=== PATIENT | female | born 1995 | race Hispanic/Latino ===

== ENCOUNTER 2021-01-01 17:04 | Inpatient (IN) | payer SELFPAY ==
[~2021-01-01] VITALS: Ht 144.8 cm; Wt 73.0 kg
[2021-01-01 17:40] LABS: BASOPHILS % (AUTO) 0.4 % (0.0-5.0); EOSINOPHILS % (AUTO) 1.3 % (0.0-8.0); HEMATOCRIT 43.3 % (36-48); LYMPHOCYTES % (AUTO) 32.5 % (21.0-51.0); MEAN CORPUSCULAR HEMOGLOBIN 30.4 pg (27.0-33.0); MEAN CORPUSCULAR HGB CONC 34.6 g/dL (32.0-36.0); MEAN CORPUSCULAR VOLUME 87.8 fL (79-99); MONOCYTES % (AUTO) 6.4 % (3.0-13.0); NEUTROPHILS % (AUTO) 59.1 % (40.0-77.0); PLATELET COUNT (AUTO) 344 K/uL (130-400); RED BLOOD CELL COUNT(AUTO) 4.93 MIL/uL (4.00-5.50); WHITE BLOOD COUNT (AUTO) 11.2 K/uL (4.8-10.8)
[2021-01-01 17:50] LABS: CREATININE 0.6 mg/dL (0.5-1.5); POTASSIUM 4.1 mmol/L (3.5-5.1)
[2021-01-01 17:55] LABS: ALBUMIN 3.5 g/dL (3.5-5.0); BILIRUBIN,TOTAL 0.5 mg/dL (0.2-1.0); TOTAL PROTEIN, SERUM 7.5 g/dL (6.0-8.3)
[2021-01-01] MEDS ORDERED: 0.9%NACL 1000ML 1,000 ML IV ONE (21:30)
[2021-01-01 21:42] VITALS: BP 116/77
[2021-01-01 22:46] LABS: APPEARANCE,URINE Clear (CLEAR); BILIRUBIN,URINE Negative (NEGATIVE); COLOR,URINE Yellow (YELLOW); GLUCOSE, URINE (UA) >=1000 mg/dL (NEGATIVE); KETONES,URINE >=160 mg/dL (NEGATIVE); LEUKOCYTE ESTERASE ,URINE Negative (NEGATIVE); NITRATE,URINE Negative (NEGATIVE); OCCULT BLOOD,URINE Negative (NEGATIVE); PROTEIN,URINE Trace mg/dL (NEGATIVE)
[2021-01-01 22:54] LABS: ABG OXYGEN SATURATION 59.7 % (95.0-99.0); HCO3,VENOUS BLOOD GAS 11.9 (21.0-28.0); PCO2,VENOUS BLOOD GAS 32 (32-45); PH,VENOUS BLOOD GAS 7.189 (7.350-7.450)
[2021-01-01 23:02] LABS: BACTERIA,URINE Few /HPF (None Seen); RBC,URINE None Seen /HPF (0-1); SQUAMOUS EPITHELIAL CELL,UR Few /HPF (0-2); WBC,URINE 0-1 /HPF (0-1); YEAST,URINE BUDDING None Seen /HPF (None Seen)
[2021-01-01] MEDS ORDERED: INSULIN REGULAR, HUMAN 3ML 100 UNIT in 0.9%NACL 100ML 99 ML IV PRN ×2 (23:30)
[2021-01-01] MEDS ORDERED: POTASSIUM CHLORIDE 10MEQ/100ML 100 ML IV PRN (23:30)
[2021-01-01] MEDS ORDERED: POTASSIUM CHLORIDE 10% ELIXIR 20 MEQ/15 ML UDCUP PO PRN (23:30)
[2021-01-01] MEDS ORDERED: DEXTROSE 5 %-0.45 % NACL 1,000 ML IV PRN (23:30)
[2021-01-01] MEDS ORDERED: 0.9%NACL 1000ML 1,000 ML IV SCH (23:30)
[2021-01-01] MEDS ORDERED: POTASSIUM CHLORIDE 20MEQ/100ML 100 ML IV PRN (23:30)
[2021-01-01] MEDS ORDERED: LIDOCAINE HCL-MPF 1% 2ML VIAL IV PRN (23:30)
[2021-01-01 23:57] VITALS: BP 111/66
[2021-01-02] VITALS (16 sets, daily range): BP systolic 91–135; BP diastolic 49–92
[2021-01-02 00:06] LABS: CHOLESTEROL 313 mg/dL (<200); HDL CHOLESTEROL 28 mg/dL (35-85); LDL DIRECT 79 mg/dL (0-99); TRIGLYCERIDES 1904 mg/dL (30-200)
[2021-01-02 00:35] LABS: HEMOGLOBIN A1C 11.8 % (4.0-6.0)
[2021-01-02] MEDS: 0.9%NACL 1000ML 1,000 ML IV SCH ×5 (00:46→23:40)
[2021-01-02 06:42] LABS: BASOPHILS % (AUTO) 0.3 % (0.0-5.0); EOSINOPHILS % (AUTO) 1.7 % (0.0-8.0); HEMATOCRIT 38.6 % (36-48); LYMPHOCYTES % (AUTO) 33.7 % (21.0-51.0); MEAN CORPUSCULAR HEMOGLOBIN 30.4 pg (27.0-33.0); MEAN CORPUSCULAR HGB CONC 34.2 g/dL (32.0-36.0); MEAN CORPUSCULAR VOLUME 88.9 fL (79-99); MONOCYTES % (AUTO) 8.1 % (3.0-13.0); PLATELET COUNT (AUTO) 285 K/uL (130-400); RED BLOOD CELL COUNT(AUTO) 4.34 MIL/uL (4.00-5.50); RED CELL DISTRIBUTION WIDTH 12.4 % (11.0-15.5); WHITE BLOOD COUNT (AUTO) 10.1 K/uL (4.8-10.8)
[2021-01-02 06:59] LABS: CREATININE 0.3 mg/dL (0.5-1.5); MAGNESIUM 1.6 mg/dL (1.80-2.40); PHOSPHORUS 2.4 mg/dL (2.5-4.9)
[2021-01-02] MEDS: FAMOTIDINE 20MG VIAL IV SCH ×2 (07:51→21:58)
[2021-01-02] MEDS: ENOXAPARIN SODIUM 40 MG/0.4 ML SYRINGE SQ SCH ×2 (07:51→09:00)
[2021-01-02] MEDS: MAGNESIUM 2GM PREMIX 50ML 50 ML IV PRN (10:22)
[2021-01-02 12:42] LABS: ABG BASE EXCESS -8.6 mmol/L (-2.0-3.0); ABG HCO3 15.9 mmol/L (21.0-28.0); ABG OXYGEN SATURATION 97.7 % (95.0-99.0); ABG PCO2 31 mmHg (32-45)
[2021-01-02 12:51] LABS: CREATININE 0.4 mg/dL (0.5-1.5); POTASSIUM 3.5 mmol/L (3.5-5.1)
[2021-01-02 12:55] LABS: ALBUMIN 2.7 g/dL (3.5-5.0); BILIRUBIN,TOTAL 0.3 mg/dL (0.2-1.0); MAGNESIUM 2.2 mg/dL (1.80-2.40); PHOSPHORUS 2.5 mg/dL (2.5-4.9)
[2021-01-02 13:17] LABS: BASOPHILS % (AUTO) 0.4 % (0.0-5.0); EOSINOPHILS % (AUTO) 1.4 % (0.0-8.0); HEMATOCRIT 38.8 % (36-48); LYMPHOCYTES % (AUTO) 37.4 % (21.0-51.0); MEAN CORPUSCULAR HEMOGLOBIN 30.4 pg (27.0-33.0); MEAN CORPUSCULAR HGB CONC 35.3 g/dL (32.0-36.0); NEUTROPHILS % (AUTO) 53.6 % (40.0-77.0); PLATELET COUNT (AUTO) 316 K/uL (130-400); RED BLOOD CELL COUNT(AUTO) 4.51 MIL/uL (4.00-5.50); RED CELL DISTRIBUTION WIDTH 12.2 % (11.0-15.5); WHITE BLOOD COUNT (AUTO) 8.4 K/uL (4.8-10.8)
[2021-01-02] MEDS ORDERED: KCL 20 MEQ ERTAB PO ONE (14:30)
[2021-01-02 16:07] LABS: CREATININE 0.5 mg/dL (0.5-1.5); POTASSIUM 3.7 mmol/L (3.5-5.1)
[2021-01-02] MEDS ORDERED: ACETAMINOPHEN 325 MG TAB ONE (20:12)
[2021-01-02] MEDS ORDERED: ACETAMINOPHEN 325 MG TAB PO PRN (20:30)
[2021-01-02 22:05] LABS: CREATININE 0.6 mg/dL (0.5-1.5); POTASSIUM 3.4 mmol/L (3.5-5.1)
[2021-01-02] MEDS: KCL 20 MEQ ERTAB PO PRN (22:34)
[2021-01-03] VITALS (26 sets, daily range): BP systolic 90–157; BP diastolic 47–79
[2021-01-03] MEDS: KCL 20 MEQ ERTAB PO PRN ×3 (00:01→09:13)
[2021-01-03 03:59] LABS: BASOPHILS % (AUTO) 0.3 % (0.0-5.0); EOSINOPHILS % (AUTO) 1.7 % (0.0-8.0); HEMATOCRIT 35.9 % (36-48); LYMPHOCYTES % (AUTO) 30.7 % (21.0-51.0); MEAN CORPUSCULAR HEMOGLOBIN 29.9 pg (27.0-33.0); MEAN CORPUSCULAR HGB CONC 34.8 g/dL (32.0-36.0); MEAN CORPUSCULAR VOLUME 85.9 fL (79-99); MONOCYTES % (AUTO) 10.1 % (3.0-13.0); NEUTROPHILS % (AUTO) 56.9 % (40.0-77.0); PLATELET COUNT (AUTO) 286 K/uL (130-400); RED BLOOD CELL COUNT(AUTO) 4.18 MIL/uL (4.00-5.50); RED CELL DISTRIBUTION WIDTH 12.2 % (11.0-15.5); WHITE BLOOD COUNT (AUTO) 9.3 K/uL (4.8-10.8)
[2021-01-03 04:17] LABS: ALBUMIN 2.6 g/dL (3.5-5.0); BILIRUBIN,TOTAL 0.4 mg/dL (0.2-1.0); CREATININE 0.5 mg/dL (0.5-1.5); MAGNESIUM 1.8 mg/dL (1.80-2.40); PHOSPHORUS 2.4 mg/dL (2.5-4.9); POTASSIUM 3.4 mmol/L (3.5-5.1); TOTAL PROTEIN, SERUM 5.6 g/dL (6.0-8.3)
[2021-01-03] MEDS: MAGNESIUM 2GM PREMIX 50ML 50 ML IV PRN (05:02)
[2021-01-03] MEDS: 0.9%NACL 1000ML 1,000 ML IV SCH ×4 (05:16→19:08)
[2021-01-03] MEDS ORDERED: INSULIN GLARGINE 100 UNITS/ML 10 ML VIAL SQ SCH (06:00)
[2021-01-03 07:50] LABS: ABG BASE EXCESS -4.1 mmol/L (-2.0-3.0); ABG OXYGEN SATURATION 97.3 % (95.0-99.0); ABG PCO2 34 mmHg (32-45)
[2021-01-03] MEDS: FAMOTIDINE 20MG VIAL IV SCH ×2 (09:13→20:13)
[2021-01-03] MEDS: ENOXAPARIN SODIUM 40 MG/0.4 ML SYRINGE SQ SCH (09:14)
[2021-01-03] MEDS: INSULIN HUMULIN R 100 UNIT/ML 3ML SQ SCH ×7 (09:15→20:40)
[2021-01-03 15:17] LABS: CHOLESTEROL 194 mg/dL (<200); HDL CHOLESTEROL 40 mg/dL (35-85); LDL DIRECT 97 mg/dL (0-99); TRIGLYCERIDES 174 mg/dL (30-200)
[2021-01-03] MEDS: FISH OIL 1000 MG/CAP PO SCH ×2 (15:36→20:13)
[2021-01-03] MEDS ORDERED: INSULIN HUMULIN R 100 UNIT/ML 3ML SQ SCH (17:30)
[2021-01-03] MEDS: ATORVASTATIN 40 MG TABLET PO SCH (20:13)
[2021-01-04 02:14] VITALS: BP 103/61
[2021-01-04 03:57] LABS: HEMATOCRIT 38.2 % (36-48); MEAN CORPUSCULAR HEMOGLOBIN 30.3 pg (27.0-33.0); MEAN CORPUSCULAR HGB CONC 34.6 g/dL (32.0-36.0); MEAN CORPUSCULAR VOLUME 87.6 fL (79-99); RED BLOOD CELL COUNT(AUTO) 4.36 MIL/uL (4.00-5.50); RED CELL DISTRIBUTION WIDTH 12.5 % (11.0-15.5); WHITE BLOOD COUNT (AUTO) 8.9 K/uL (4.8-10.8)
[2021-01-04 04:13] LABS: CREATININE 0.6 mg/dL (0.5-1.5); MAGNESIUM 1.8 mg/dL (1.80-2.40); PHOSPHORUS 3.9 mg/dL (2.5-4.9); POTASSIUM 3.7 mmol/L (3.5-5.1)
[2021-01-04] MEDS: INSULIN HUMULIN R 100 UNIT/ML 3ML SQ SCH ×6 (06:56→18:25)
[2021-01-04 07:00] VITALS: BP 97/57
[2021-01-04] MEDS: ENOXAPARIN SODIUM 40 MG/0.4 ML SYRINGE SQ SCH (08:32)
[2021-01-04] MEDS: FAMOTIDINE 20MG VIAL IV SCH ×2 (08:32→23:06)
[2021-01-04] MEDS: FISH OIL 1000 MG/CAP PO SCH ×2 (08:33→23:07)
[2021-01-04 09:22] VITALS: BP 99/54
[2021-01-04 12:00] VITALS: BP 114/68
[2021-01-04] MEDS ORDERED: INSULIN GLARGINE 100 UNITS/ML 10 ML VIAL SQ SCH ×2 (12:00→21:00)
[2021-01-04 16:00] VITALS: BP 107/67
[2021-01-04 19:45] VITALS: BP 110/62
[2021-01-04] MEDS: ATORVASTATIN 40 MG TABLET PO SCH (23:07)
[2021-01-04] MEDS ORDERED: FAMOTIDINE 20MG TAB ONE (23:14)
[2021-01-04] MEDS: FAMOTIDINE 20MG TAB PO SCH (23:15)
[2021-01-05 00:02] VITALS: BP 109/64
[2021-01-05] MEDS ORDERED: FURO40TA5 PO (02:42)
[2021-01-05] MEDS ORDERED: CHOL2000 PO (02:42)
[2021-01-05] MEDS ORDERED: PROP20TA7 PO (02:42)
[2021-01-05] MEDS ORDERED: SPIR100T5 PO (02:42)
[2021-01-05] MEDS ORDERED: GLIP10TA9 PO (02:42)
[2021-01-05] MEDS ORDERED: FISH1CAP63 PO ×2 (02:42→08:39)
[2021-01-05] MEDS ORDERED: INSLAN SQ (02:42)
[2021-01-05] MEDS ORDERED: PHEN57OI3 RC (02:42)
[2021-01-05] MEDS ORDERED: PANT40GR PO (02:42)
[2021-01-05] MEDS ORDERED: FERR-82 PO (02:42)
[2021-01-05 03:40] VITALS: BP 96/46
[2021-01-05] MEDS: INSULIN HUMULIN R 100 UNIT/ML 3ML SQ SCH ×3 (07:46→07:47)
[2021-01-05 08:00] VITALS: BP 103/64
[2021-01-05] MEDS ORDERED: ATOR10 PO (08:39)
[2021-01-05 08:59] LABS: CREATININE 0.5 mg/dL (0.5-1.5); POTASSIUM 3.8 mmol/L (3.5-5.1)
[2021-01-05] MEDS: FAMOTIDINE 20MG TAB PO SCH (10:04)
[2021-01-05] MEDS: FISH OIL 1000 MG/CAP PO SCH (10:04)
[2021-01-05] MEDS: ENOXAPARIN SODIUM 40 MG/0.4 ML SYRINGE SQ SCH (10:05)
[2021-01-05 11:00] VITALS: BP 94/60
[2021-01-05] MEDS ORDERED: INSULIN GLARGINE 100 UNITS/ML 10 ML VIAL SQ SCH (13:00)
== END 2021-01-05 13:00 | disposition home or self-care (01) | DRG 638 ==
LOC: EDH 17:04 → EDHIP 17:05 → 2CH 01-02 20:04 → 3DH 01-04 08:55
PROVIDERS: ADMIT Internal Medicine; ATTEND Internal Medicine
DX: E11.10 Type 2 diabetes mellitus with ketoacidosis without coma (principal); E87.1 Hypo-osmolality and hyponatremia; F32.9 Major depressive disorder, single episode, unspecified; F41.9 Anxiety disorder, unspecified; E28.2 Polycystic ovarian syndrome; E87.6 Hypokalemia; E88.81 Metabolic syndrome and other insulin resistance; E66.01 Morbid (severe) obesity due to excess calories; D72.829 Elevated white blood cell count, unspecified; Z68.36 Body mass index [BMI] 36.0-36.9, adult; E78.1 Pure hyperglyceridemia; F17.210 Nicotine dependence, cigarettes, uncomplicated; Z79.4 Long term (current) use of insulin; Z83.3 Family history of diabetes mellitus
CPT/HCPCS: 36415; 36600; 71045; 80048; 80053; 80061; 81001; 81025; 82150; 82435; 82803; 82947; 82948; 83036; 83605; 83690; 83735; 84100; 84132; 84145; 84295; 84443; 85018; 85025; 85027; G0378; J1650; J1815; J3475; J3490; J7030; J7042

== ENCOUNTER 2021-10-18 10:49 | Inpatient (IN) | payer OTHER ==
[~2021-10-18] VITALS: Ht 149.9 cm; Wt 72.3 kg
[~2021-10-18 10:49] MED LIST: ATOR10 PO; CHOL2000 PO; FERR-82 PO; FISH1CAP63 PO; PANT40GR PO; PHEN57OI3 RC
[2021-10-18 11:46] LABS: BASOPHILS % (AUTO) 0.5 % (0.0-5.0); HEMATOCRIT 45.3 % (36-48); LYMPHOCYTES % (AUTO) 24.2 % (21.0-51.0); MEAN CORPUSCULAR HGB CONC 33.6 g/dL (32.0-36.0); MEAN CORPUSCULAR VOLUME 89.5 fL (79-99); NEUTROPHILS % (AUTO) 67.9 % (40.0-77.0); PLATELET COUNT (AUTO) 289 K/uL (130-400); RED BLOOD CELL COUNT(AUTO) 5.06 MIL/uL (4.00-5.50); RED CELL DISTRIBUTION WIDTH 13.1 % (11.0-15.5); WHITE BLOOD COUNT (AUTO) 10.9 K/uL (4.8-10.8)
[2021-10-18] MEDS ORDERED: ONDANSETRON 4MG INJ IVP ONE (12:00)
[2021-10-18] MEDS ORDERED: MORPHINE 4 MG SYG IVP ONE (12:00)
[2021-10-18] MEDS ORDERED: ASPIRIN 325MG TAB PO ONE (12:00)
[2021-10-18 12:10] LABS: CREATININE 0.5 mg/dL (0.5-1.5)
[2021-10-18 12:16] LABS: ALBUMIN 3.5 g/dL (3.5-5.0); BILIRUBIN,TOTAL 0.4 mg/dL (0.2-1.0); TOTAL PROTEIN, SERUM 7.1 g/dL (6.0-8.3)
[2021-10-18 12:19] LABS: AMPHET/METH SCREEN,URINE NEGATIVE (NEGATIVE); BARBITURATE SCREEN, URINE NEGATIVE (NEGATIVE); BENZODIAZEPINES SCREEN,URINE NEGATIVE (NEGATIVE); CANNABINOID SCREEN,URINE POSITIVE (NEGATIVE); COCAINE SCREEN,URINE NEGATIVE (NEGATIVE); OPIATE SCREEN,URINE NEGATIVE (NEGATIVE); PHENCYCLIDINE SCREEN,URINE NEGATIVE (NEGATIVE)
[2021-10-18] MEDS ORDERED: INSULIN HUMULIN R 100 UNIT/ML 3ML IV SCH ×2 (13:00→14:30)
[2021-10-18] MEDS: 0.9%NACL 1000ML 1,000 ML IV SCH ×4 (13:16→20:39)
[2021-10-18 13:28] LABS: APPEARANCE,URINE Clear (CLEAR); BILIRUBIN,URINE Negative (NEGATIVE); COLOR,URINE Yellow (YELLOW); GLUCOSE, URINE (UA) >=1000 mg/dL (NEGATIVE); KETONES,URINE >=160 mg/dL (NEGATIVE); LEUKOCYTE ESTERASE ,URINE Negative (NEGATIVE); NITRATE,URINE Negative (NEGATIVE); OCCULT BLOOD,URINE Negative (NEGATIVE); PROTEIN,URINE Negative (NEGATIVE); UROBILINOGEN,URINE 0.2 mg/dL (0.2-1.0)
[2021-10-18 13:31] LABS: ABG BASE EXCESS -7.9 mmol/L (-2.0-3.0); ABG HCO3 16.3 mmol/L (21.0-28.0); ABG OXYGEN SATURATION 96.8 % (95.0-99.0); ABG PCO2 30 mmHg (32-45)
[2021-10-18 13:39] LABS: BACTERIA,URINE Few /HPF (None Seen); RBC,URINE 0-1 /HPF (0-1); WBC,URINE 0-1 /HPF (0-1)
[2021-10-18] MEDS ORDERED: POTASSIUM CHLORIDE 10MEQ/100ML 100 ML IV PRN (14:30)
[2021-10-18] MEDS ORDERED: ONDANSETRON 4MG INJ IV PRN (14:30)
[2021-10-18] MEDS ORDERED: LACTULOSE 20 GM/30 ML UDCUP PO PRN (14:30)
[2021-10-18] MEDS ORDERED: ACETAMINOPHEN 325 MG TAB PO PRN ×2 (14:30)
[2021-10-18] MEDS ORDERED: 0.9%NACL 1000ML 1,000 ML IV SCH ×4 (14:30)
[2021-10-18] MEDS ORDERED: DEXTROSE 5 %-0.45 % NACL 1,000 ML IV PRN (14:30)
[2021-10-18 14:47] LABS: CHOLESTEROL 255 mg/dL (<200); HDL CHOLESTEROL 28 mg/dL (35-85); LDL DIRECT 83 mg/dL (0-99); TRIGLYCERIDES 986 mg/dL (30-200)
[2021-10-18 14:56] LABS: HEMOGLOBIN A1C 11.7 % (4.0-6.0)
[2021-10-18] MEDS ORDERED: INSULIN REGULAR, HUMAN 3ML 100 UNIT in 0.9%NACL 100ML 99 ML IV SCH ×2 (15:00)
[2021-10-18] MEDS: DEXTROSE 5 %-0.45 % NACL 1,000 ML IV PRN ×3 (15:06→23:02)
[2021-10-18] MEDS: INSULIN LISPRO 100 UNIT/ML 3ML SQ SCH (17:26)
[2021-10-18] MEDS ORDERED: INSULIN GLARGINE 100 UNITS/ML 10 ML VIAL SQ SCH (21:00)
[2021-10-18] MEDS: FAMOTIDINE 20MG VIAL IV SCH (21:46)
[2021-10-18 21:57] LABS: BASE EXCESS,VENOUS BLOOD GAS -7.1 (-2.0-3.0); HCO3,VENOUS BLOOD GAS 18.3 (21.0-28.0); PCO2,VENOUS BLOOD GAS 36 (32-45); PH,VENOUS BLOOD GAS 7.319 (7.350-7.450)
[2021-10-18 22:17] LABS: CREATININE 0.4 mg/dL (0.5-1.5); MAGNESIUM 1.2 mg/dL (1.80-2.40); PHOSPHORUS 2.1 mg/dL (2.5-4.9); POTASSIUM 3.2 mmol/L (3.5-5.1)
[2021-10-18] MEDS: POTASSIUM CHLORIDE 10MEQ/100ML 100 ML IV PRN (23:02)
[2021-10-18] MEDS ORDERED: PROMETHAZINE HCL 25 MG/ML 1ML AMPULE IM ONE (23:30)
[2021-10-19] VITALS (32 sets, daily range): BP systolic 73–117; BP diastolic 41–73
[2021-10-19] MEDS: MAGNESIUM 2GM PREMIX 50ML 50 ML IV PRN ×2 (02:09→06:31)
[2021-10-19 04:50] LABS: HEMATOCRIT 36.1 % (36-48); MEAN CORPUSCULAR HEMOGLOBIN 28.9 pg (27.0-33.0); MEAN CORPUSCULAR HGB CONC 32.7 g/dL (32.0-36.0); MEAN CORPUSCULAR VOLUME 88.5 fL (79-99); RED BLOOD CELL COUNT(AUTO) 4.08 MIL/uL (4.00-5.50); RED CELL DISTRIBUTION WIDTH 13.1 % (11.0-15.5); WHITE BLOOD COUNT (AUTO) 9.6 K/uL (4.8-10.8)
[2021-10-19 05:06] LABS: CREATININE 0.4 mg/dL (0.5-1.5); MAGNESIUM 1.9 mg/dL (1.80-2.40); PHOSPHORUS 2.2 mg/dL (2.5-4.9)
[2021-10-19] MEDS: POTASSIUM CHLORIDE 10MEQ/100ML 100 ML IV PRN (05:15)
[2021-10-19] MEDS: DEXTROSE 5 %-0.45 % NACL 1,000 ML IV PRN (05:26)
[2021-10-19] MEDS ORDERED: KCL 20 MEQ ERTAB PO PRN (06:00)
[2021-10-19] MEDS: 0.9%NACL 1000ML 1,000 ML IV SCH (06:05)
[2021-10-19] MEDS: FAMOTIDINE 20MG VIAL IV SCH ×2 (08:16→22:46)
[2021-10-19] MEDS: ENOXAPARIN SODIUM 40 MG/0.4 ML SYRINGE SQ SCH (08:18)
[2021-10-19] MEDS: INSULIN LISPRO 100 UNIT/ML 3ML SQ SCH (08:19)
[2021-10-19 09:12] LABS: CREATININE 0.4 mg/dL (0.5-1.5); MAGNESIUM 2.1 mg/dL (1.80-2.40); PHOSPHORUS 1.9 mg/dL (2.5-4.9); POTASSIUM 3.6 mmol/L (3.5-5.1)
[2021-10-19] MEDS: NEUTRA-PHOS PACKET 1 EACH PO SCH ×3 (12:53→22:49)
[2021-10-19] MEDS: INSULIN HUMULIN R 100 UNIT/ML 3ML SQ SCH ×2 (16:43→22:53)
[2021-10-19] MEDS: INSULIN HUMULIN 70/30 100 UNIT/ML 3ML SQ SCH (16:46)
[2021-10-19] MEDS ORDERED: GABAPENTIN 300 MG CAPSULE PO SCH (21:00)
[2021-10-20 03:45] VITALS: BP 109/67
[2021-10-20] MEDS: INSULIN HUMULIN R 100 UNIT/ML 3ML SQ SCH ×3 (05:14→16:30)
[2021-10-20] MEDS ORDERED: INSULIN HUMULIN 70/30 100 UNIT/ML 3ML SQ SCH (07:30)
[2021-10-20 08:00] VITALS: BP 109/63
[2021-10-20] MEDS ORDERED: LIDOCAINE HCL-MPF 1% 2ML VIAL IV PRN (08:30)
[2021-10-20] MEDS ORDERED: POTASSIUM CHLORIDE 20MEQ/100ML 100 ML IV PRN (08:30)
[2021-10-20] MEDS ORDERED: POTASSIUM CHLORIDE 10% ELIXIR 20 MEQ/15 ML UDCUP PO PRN (08:30)
[2021-10-20] MEDS ORDERED: KCL 20 MEQ ERTAB PO PRN (08:30)
[2021-10-20] MEDS ORDERED: MAGNESIUM 2GM PREMIX 50ML 50 ML IV PRN (08:30)
[2021-10-20] MEDS: FAMOTIDINE 20MG VIAL IV SCH (08:47)
[2021-10-20] MEDS: NEUTRA-PHOS PACKET 1 EACH PO SCH ×3 (08:47→17:00)
[2021-10-20] MEDS: ENOXAPARIN SODIUM 40 MG/0.4 ML SYRINGE SQ SCH (08:48)
[2021-10-20] MEDS: FUROSEMIDE 20MG VIAL IV SCH ×2 (08:52→17:08)
[2021-10-20] MEDS: GABAPENTIN 300 MG CAPSULE PO SCH ×3 (08:53→13:36)
[2021-10-20 09:25] LABS: CREATININE 0.5 mg/dL (0.5-1.5); MAGNESIUM 1.7 mg/dL (1.80-2.40); PHOSPHORUS 3.5 mg/dL (2.5-4.9); POTASSIUM 3.5 mmol/L (3.5-5.1)
[2021-10-20 13:00] VITALS: BP 112/75
[2021-10-20] MEDS ORDERED: FENO145T26 PO (15:30)
[2021-10-20] MEDS ORDERED: ATOR40TA69 PO (15:30)
[2021-10-20] MEDS ORDERED: GABA300C PO (15:30)
[2021-10-20] MEDS ORDERED: HUM10VIA SQ ×2 (15:30)
[2021-10-20] MEDS ORDERED: [UNRECOGNIZED DRUG - CODE] MC (15:41)
[2021-10-20 16:00] VITALS: BP 125/72
[2021-10-20] MEDS: INSULIN HUMULIN 70/30 100 UNIT/ML 3ML SQ SCH (16:59)
[2021-10-20] MEDS ORDERED: FENOFIBRATE NANOCRYSTALLIZED 145 MG TAB PO SCH (17:00)
[2021-10-20] MEDS ORDERED: ATORVASTATIN 40 MG TABLET PO SCH (17:00)
== END 2021-10-20 17:45 | disposition home or self-care (01) | DRG 638 ==
LOC: EDH 10:49 → EDHIP 10:50 → 2BH 10-19 00:46 → 4DH 10-19 15:05
PROVIDERS: ADMIT Internal Medicine; ATTEND Internal Medicine
DX: E11.10 Type 2 diabetes mellitus with ketoacidosis without coma (principal); N17.9 Acute kidney failure, unspecified; E86.1 Hypovolemia; E78.5 Hyperlipidemia, unspecified; F32.A Depression, unspecified; F41.9 Anxiety disorder, unspecified; F17.210 Nicotine dependence, cigarettes, uncomplicated; E78.00 Pure hypercholesterolemia, unspecified; Z79.4 Long term (current) use of insulin; Z82.49 Family history of ischemic heart disease and other diseases of the circulatory system; G62.9 Polyneuropathy, unspecified
CPT/HCPCS: 36415; 36600; 71045; 80048; 80053; 80061; 80305; 81001; 81025; 82010; 82435; 82607; 82746; 82803; 82947; 82948; 83036; 83605; 83735; 83930; 84100; 84132; 84295; 84443; 84484; 85025; 85027; 85378; 93005; G0378; J1650; J1815; J1940; J2270; J2405; J3475; J3490; J7030; J7042

== ENCOUNTER 2022-09-16 07:48 | Emergency (ER) | payer BC ==
[~2022-09-16] VITALS: Ht 149.9 cm; Wt 61.7 kg
[~2022-09-16 07:48] MED LIST changes: -ATOR10 PO; +ATOR40TA69 PO; +FENO145T26 PO; +GABA300C PO; +HUM10VIA SQ; -PHEN57OI3 RC; +[UNRECOGNIZED DRUG - CODE] MC
[2022-09-16 08:50] LABS: BASOPHILS % (AUTO) 0.3 % (0.0-5.0); EOSINOPHILS % (AUTO) 1.1 % (0.0-8.0); HEMATOCRIT 45.7 % (36-48); LYMPHOCYTES % (AUTO) 21.7 % (21.0-51.0); MEAN CORPUSCULAR HGB CONC 33.9 g/dL (32.0-36.0); MEAN CORPUSCULAR VOLUME 91.4 fL (79-99); MONOCYTES % (AUTO) 5.4 % (3.0-13.0); NEUTROPHILS % (AUTO) 71.2 % (40.0-77.0); PLATELET COUNT (AUTO) 348 K/uL (130-400); RED CELL DISTRIBUTION WIDTH 11.7 % (11.0-15.5); WHITE BLOOD COUNT (AUTO) 13.3 K/uL (4.8-10.8)
[2022-09-16 09:04] LABS: CREATININE 0.6 mg/dL (0.5-1.5); CRP QUANTITATIVE 26.8 mg/L (0.00-9.0); POTASSIUM 3.7 mmol/L (3.5-5.1); TOTAL PROTEIN, SERUM 8.3 g/dL (6.0-8.3)
[2022-09-16 09:36] LABS: INFLUENZA TYPE A NEGATIVE FOR TYPE A (NEG); INFLUENZA TYPE B NEGATIVE FOR TYPE B (NEG)
[2022-09-16] MEDS ORDERED: IPRATROPIUM/ALBUTEROL SULFATE 3 ML SOLUTION IH ONE (10:30)
[2022-09-16] MEDS ORDERED: INSULIN HUMULIN R 100 UNIT/ML 3ML IV ONE (10:30)
[2022-09-16] MEDS ORDERED: BENZONATATE 100 MG CAPSULE PO ONE (10:30)
[2022-09-16] MEDS ORDERED: 0.9%NACL 1000ML 1,000 ML IV ONE (10:30)
[2022-09-16] MEDS ORDERED: CEFTRIAXONE 1G VIAL IVP ONE (10:30)
[2022-09-16] MEDS ORDERED: DEXAMETHASONE SOD PHOSPHATE 4 MG/ML 1ML VIAL IVP ONE (10:30)
[2022-09-16 11:38] LABS: APPEARANCE,URINE CLEAR (CLEAR); BILIRUBIN,URINE NEGATIVE (NEGATIVE); COLOR,URINE COLORLESS (YELLOW); GLUCOSE, URINE (UA) >=1000 mg/dL (NEGATIVE); KETONES,URINE 60 mg/dL (NEGATIVE); LEUKOCYTE ESTERASE ,URINE NEGATIVE Leu/uL (NEGATIVE); NITRATE,URINE NEGATIVE (NEGATIVE); OCCULT BLOOD,URINE NEGATIVE (NEGATIVE); PH,URINE 6.5 (5.0-8.0); PROTEIN,URINE NEGATIVE (NEGATIVE); UROBILINOGEN,URINE 0.2 mg/dL (0.2-1.0)
[2022-09-16 11:40] VITALS: BP 99/54
[2022-09-16 11:40] LABS: SQUAMOUS EPITHELIAL CELL,UR RARE /HPF (0-2); YEAST,URINE BUDDING RARE /HPF (None Seen)
[2022-09-16] MEDS ORDERED: BENZ-39 PO (12:15)
[2022-09-16] MEDS ORDERED: AMOX500C2 PO (12:15)
[2022-09-16] MEDS ORDERED: METF-444 PO (12:15)
[2022-09-16] MEDS ORDERED: FLUT16H NASAL (12:15)
[2022-09-16] MEDS ORDERED: ALBUHFA IH (12:15)
== END 2022-09-16 12:26 | disposition home or self-care (01) ==
LOC: EDH 07:48
DX: J20.8 Acute bronchitis due to other specified organisms (principal); J32.9 Chronic sinusitis, unspecified; E11.65 Type 2 diabetes mellitus with hyperglycemia; E78.00 Pure hypercholesterolemia, unspecified; Z79.899 Other long term (current) drug therapy; Z20.822 Contact with and (suspected) exposure to COVID-19
CPT/HCPCS: 99284; 96374; 71046; 96361; 96375; 87635; 80053; 85025; 87804 ×2; 82948; 86140; 81001; 81025; 36415; 94640; J1815; J1100; C9803; J7030; J0696

== ENCOUNTER 2022-12-30 06:59 | Emergency (ER) | payer BC ==
[~2022-12-30] VITALS: Ht 149.9 cm; Wt 56.7 kg
[~2022-12-30 06:59] MED LIST changes: +ALBUHFA IH; +AMOX500C2 PO; +BENZ-39 PO; +FLUT16H NASAL; +METF-444 PO
[2022-12-30 07:26] LABS: BASOPHILS # (AUTO) 0.04 K/uL (0.00-0.20); BASOPHILS % (AUTO) 0.5 % (0.0-5.0); EOSINOPHILS # (AUTO) 0.17 K/uL (0.00-0.70); EOSINOPHILS % (AUTO) 2.1 % (0.0-8.0); HEMATOCRIT 43.9 % (36-48); IMMATURE GRANULOCYTE ABSOLUTE 0.02 K/uL (0-1); LYMPHOCYTES # (AUTO) 2.3 K/uL (1.0-4.8); LYMPHOCYTES % (AUTO) 27.6 % (21.0-51.0); MEAN CORPUSCULAR HEMOGLOBIN 30.7 pg (27.0-33.0); MEAN CORPUSCULAR HGB CONC 33.3 g/dL (32.0-36.0); MEAN CORPUSCULAR VOLUME 92.2 fL (79-99); MONOCYTES # (AUTO) 0.7 K/uL (0.1-1.0); MONOCYTES % (AUTO) 8.1 % (3.0-13.0); NEUTROPHILS % (AUTO) 61.5 % (40.0-77.0); PLATELET COUNT (AUTO) 297 K/uL (130-400); RED BLOOD CELL COUNT(AUTO) 4.76 MIL/uL (4.00-5.50); RED CELL DISTRIBUTION WIDTH 11.6 % (11.0-15.5); WHITE BLOOD COUNT (AUTO) 8.2 K/uL (4.8-10.8)
[2022-12-30 07:45] LABS: APPEARANCE,URINE CLEAR (CLEAR); BILIRUBIN,URINE NEGATIVE (NEGATIVE); COLOR,URINE COLORLESS (YELLOW); GLUCOSE, URINE (UA) >=1000 mg/dL (NEGATIVE); HCG,QUALITATIVE URINE NEGATIVE (NEGATIVE); KETONES,URINE >=80 mg/dL (NEGATIVE); LEUKOCYTE ESTERASE ,URINE NEGATIVE Leu/uL (NEGATIVE); NITRATE,URINE NEGATIVE (NEGATIVE); OCCULT BLOOD,URINE MODERATE (NEGATIVE); PROTEIN,URINE NEGATIVE (NEGATIVE); UROBILINOGEN,URINE 0.2 mg/dL (0.2-1.0)
[2022-12-30 07:46] LABS: ADD UA MICROSCOPIC YES
[2022-12-30 07:47] LABS: RBC,URINE 0-1 /HPF (0-1); SQUAMOUS EPITHELIAL CELL,UR RARE /HPF (0-2)
[2022-12-30 08:00] LABS: ALBUMIN 3.7 g/dL (3.5-5.0); CREATININE 0.6 mg/dL (0.5-1.5); POTASSIUM 4.3 mmol/L (3.5-5.1)
[2022-12-30 08:04] LABS: BILIRUBIN,TOTAL 0.3 mg/dL (0.2-1.0); MAGNESIUM 1.7 mg/dL (1.80-2.40); TOTAL PROTEIN, SERUM 7.4 g/dL (6.0-8.3)
[2022-12-30] MEDS ORDERED: 0.9%NACL 1000ML 2,000 ML IV ONE (08:21)
[2022-12-30] MEDS ORDERED: INSULIN HUMULIN R 100 UNIT/ML 3ML ONE (08:21)
[2022-12-30] MEDS ORDERED: 0.9%NACL 1000ML 1,000 ML IV ONE (08:30)
[2022-12-30] MEDS ORDERED: ASPIRIN 325MG TAB PO ONE (08:30)
[2022-12-30] MEDS ORDERED: INSULIN HUMULIN R 100 UNIT/ML 3ML SQ ONE (08:30)
[2022-12-30] MEDS ORDERED: LACTATED RINGERS 1000ML 1,000 ML IV ONE (08:30)
[2022-12-30] MEDS ORDERED: ONDANSETRON 4MG INJ IVP ONE (08:30)
[2022-12-30] MEDS ORDERED: FAMOTIDINE 20MG VIAL IV ONE (08:30)
[2022-12-30] MEDS ORDERED: GLIP10TA9 PO (11:58)
[2022-12-30 12:14] VITALS: BP 109/67; PULSE 78; RESP 16; O2SAT 98
== END 2022-12-30 12:17 | disposition home or self-care (01) ==
LOC: EDH 06:59
DX: E11.65 Type 2 diabetes mellitus with hyperglycemia (principal); E78.00 Pure hypercholesterolemia, unspecified; Z79.899 Other long term (current) drug therapy; Z79.4 Long term (current) use of insulin
CPT/HCPCS: 99284; 96374; 71045; 96375; 96361; 83735; 84484 ×2; 80053; 85025; 82948 ×2; 82010; 81001; 81025; 36415; 93005 ×2; J1815; J3490; J7030; J2405

== ENCOUNTER 2023-04-21 11:36 | Emergency (ER) | payer BC ==
[~2023-04-21] VITALS: Ht 149.9 cm; Wt 54.4 kg
[~2023-04-21 11:36] MED LIST changes: +GLIP10TA9 PO
[2023-04-21 12:17] LABS: BASOPHILS # (AUTO) 0.04 K/uL (0.00-0.20); BASOPHILS % (AUTO) 0.4 % (0.0-5.0); EOSINOPHILS # (AUTO) 0.11 K/uL (0.00-0.70); EOSINOPHILS % (AUTO) 1.2 % (0.0-8.0); IMMATURE GRANULOCYTE ABSOLUTE 0.02 K/uL (0-1); LYMPHOCYTES # (AUTO) 2.5 K/uL (1.0-4.8); LYMPHOCYTES % (AUTO) 28.1 % (21.0-51.0); MEAN CORPUSCULAR HGB CONC 34.3 g/dL (32.0-36.0); MEAN CORPUSCULAR VOLUME 93.2 fL (79-99); MONOCYTES # (AUTO) 0.7 K/uL (0.1-1.0); MONOCYTES % (AUTO) 7.4 % (3.0-13.0); NEUTROPHILS # (AUTO) 5.7 K/uL (1.8-7.7); NEUTROPHILS % (AUTO) 62.7 % (40.0-77.0); PLATELET COUNT (AUTO) 307 K/uL (130-400); RED BLOOD CELL COUNT(AUTO) 4.72 MIL/uL (4.00-5.50); RED CELL DISTRIBUTION WIDTH 11.6 % (11.0-15.5)
[2023-04-21 12:24] LABS: HCG,QUALITATIVE URINE NEGATIVE (NEGATIVE)
[2023-04-21 12:25] LABS: APPEARANCE,URINE CLEAR (CLEAR); BILIRUBIN,URINE NEGATIVE (NEGATIVE); COLOR,URINE COLORLESS (YELLOW); GLUCOSE, URINE (UA) >=1000 mg/dL (NEGATIVE); KETONES,URINE 10 mg/dL (NEGATIVE); LEUKOCYTE ESTERASE ,URINE NEGATIVE Leu/uL (NEGATIVE); NITRATE,URINE NEGATIVE (NEGATIVE); OCCULT BLOOD,URINE NEGATIVE (NEGATIVE); PROTEIN,URINE NEGATIVE (NEGATIVE); UROBILINOGEN,URINE 0.2 mg/dL (0.2-1.0)
[2023-04-21 12:28] LABS: ADD UA MICROSCOPIC YES
[2023-04-21 12:30] LABS: SQUAMOUS EPITHELIAL CELL,UR RARE /HPF (0-2)
[2023-04-21 12:32] LABS: CREATININE 0.9 mg/dL (0.5-1.5)
[2023-04-21 12:39] LABS: ALBUMIN 3.7 g/dL (3.5-5.0); BILIRUBIN,TOTAL 0.4 mg/dL (0.2-1.0); TOTAL PROTEIN, SERUM 7.4 g/dL (6.0-8.3)
[2023-04-21] MEDS ORDERED: 0.9%NACL 1000ML 2,000 ML IV ONE (13:00)
[2023-04-21 13:50] LABS: AMPHET/METH SCREEN,URINE NEGATIVE (NEGATIVE); BARBITURATE SCREEN, URINE NEGATIVE (NEGATIVE); BENZODIAZEPINES SCREEN,URINE NEGATIVE (NEGATIVE); CANNABINOID SCREEN,URINE POSITIVE (NEGATIVE); COCAINE SCREEN,URINE NEGATIVE (NEGATIVE); OPIATE SCREEN,URINE NEGATIVE (NEGATIVE); PHENCYCLIDINE SCREEN,URINE NEGATIVE (NEGATIVE)
[2023-04-21 14:49] LABS: RAPID GROUP A STREP negative (NEGATIVE)
[2023-04-21 14:51] LABS: SARS-CoV-2, RNA, NAAT NEGATIVE SARS CoV-2 (NEGATIVE)
[2023-04-21 14:56] LABS: INFLUENZA TYPE A Negative For Type A (NEGATIVE); INFLUENZA TYPE B Negative For Type B (NEGATIVE)
[2023-04-21 15:19] VITALS: BP 120/68; PULSE 72; RESP 16; O2SAT 99
== END 2023-04-21 15:56 | disposition home or self-care (01) ==
LOC: EDH 11:36
DX: E11.65 Type 2 diabetes mellitus with hyperglycemia (principal); E86.0 Dehydration; E78.00 Pure hypercholesterolemia, unspecified; Z20.822 Contact with and (suspected) exposure to COVID-19
CPT/HCPCS: 99283; 96360; 87635; 80053; 80305; 85025; 87880; 87420; 87804 ×2; 82948 ×2; 81001; 81025; 36415; C9803; J7030

== ENCOUNTER 2023-05-12 12:50 | Emergency (ER) | payer BC ==
[~2023-05-12] VITALS: Ht 149.9 cm; Wt 54.4 kg
[2023-05-12 13:17] LABS: BASOPHILS # (AUTO) 0.03 K/uL (0.00-0.20); BASOPHILS % (AUTO) 0.2 % (0.0-5.0); EOSINOPHILS # (AUTO) 0.11 K/uL (0.00-0.70); EOSINOPHILS % (AUTO) 0.7 % (0.0-8.0); HEMATOCRIT 38.3 % (36-48); IMMATURE GRANULOCYTE ABSOLUTE 0.06 K/uL (0-1); LYMPHOCYTES # (AUTO) 2.3 K/uL (1.0-4.8); LYMPHOCYTES % (AUTO) 14.9 % (21.0-51.0); MEAN CORPUSCULAR HEMOGLOBIN 31.6 pg (27.0-33.0); MEAN CORPUSCULAR HGB CONC 33.4 g/dL (32.0-36.0); MEAN CORPUSCULAR VOLUME 94.6 fL (79-99); MONOCYTES % (AUTO) 6.5 % (3.0-13.0); NEUTROPHILS # (AUTO) 11.7 K/uL (1.8-7.7); NEUTROPHILS % (AUTO) 77.3 % (40.0-77.0); PLATELET COUNT (AUTO) 298 K/uL (130-400); RED BLOOD CELL COUNT(AUTO) 4.05 MIL/uL (4.00-5.50); RED CELL DISTRIBUTION WIDTH 12.1 % (11.0-15.5); WHITE BLOOD COUNT (AUTO) 15.2 K/uL (4.8-10.8)
[2023-05-12 13:28] LABS: CREATININE 0.5 mg/dL (0.5-1.5); POTASSIUM 3.7 mmol/L (3.5-5.1)
[2023-05-12 13:32] LABS: ALBUMIN 3.4 g/dL (3.5-5.0); BILIRUBIN,TOTAL 0.3 mg/dL (0.2-1.0); TOTAL PROTEIN, SERUM 6.5 g/dL (6.0-8.3)
[2023-05-12 13:43] LABS: APPEARANCE,URINE CLEAR (CLEAR); BILIRUBIN,URINE NEGATIVE (NEGATIVE); COLOR,URINE COLORLESS (YELLOW); GLUCOSE, URINE (UA) NEGATIVE (NEGATIVE); KETONES,URINE NEGATIVE (NEGATIVE); LEUKOCYTE ESTERASE ,URINE NEGATIVE Leu/uL (NEGATIVE); NITRATE,URINE NEGATIVE (NEGATIVE); OCCULT BLOOD,URINE NEGATIVE (NEGATIVE); PROTEIN,URINE NEGATIVE (NEGATIVE); UROBILINOGEN,URINE 0.2 mg/dL (0.2-1.0)
[2023-05-12 13:45] LABS: ADD UA MICROSCOPIC NO
[2023-05-12 16:08] LABS: SALICYLATE 3.3 mg/dL (2.8-20.0); THYROID STIMULATING HORMONE 1.32 uIU/mL (0.36-3.74)
[2023-05-12 16:11] LABS: ACETAMINOPHEN < 1 mcg/mL (10-30)
[2023-05-12] MEDS ORDERED: ONDANSETRON 4MG INJ IVP ONE (16:30)
[2023-05-12] MEDS ORDERED: MAGNESIUM 2GM PREMIX 50ML 50 ML IV SCH (17:30)
[2023-05-12 18:33] LABS: AMPHET/METH SCREEN,URINE NEGATIVE (NEGATIVE); BARBITURATE SCREEN, URINE NEGATIVE (NEGATIVE); BENZODIAZEPINES SCREEN,URINE NEGATIVE (NEGATIVE); CANNABINOID SCREEN,URINE POSITIVE (NEGATIVE); COCAINE SCREEN,URINE NEGATIVE (NEGATIVE); OPIATE SCREEN,URINE NEGATIVE (NEGATIVE); PHENCYCLIDINE SCREEN,URINE NEGATIVE (NEGATIVE)
[2023-05-12 19:34] VITALS: BP 119/72; PULSE 68; RESP 16; O2SAT 98
== END 2023-05-12 19:45 | disposition home or self-care (01) ==
LOC: EDH 12:50
DX: R41.82 Altered mental status, unspecified (principal); F32.A Depression, unspecified; E83.42 Hypomagnesemia; E11.649 Type 2 diabetes mellitus with hypoglycemia without coma; F41.9 Anxiety disorder, unspecified; Z79.84 Long term (current) use of oral hypoglycemic drugs; Z79.899 Other long term (current) drug therapy
CPT/HCPCS: 99284; 96374; 70450; 71045; 96375; 83735; 80305; 83690; 82948; 83605; 81025; 36415; 81003; 80050; J3475; G0481; 80053; 84443; 85025

== ENCOUNTER 2024-10-11 23:06 | Emergency (ER) | payer BC ==
[~2024-10-11] VITALS: Ht 157.5 cm; Wt 65.8 kg
[~2024-10-11 23:06] MED LIST changes: +GLIP10TA16 PO; -GLIP10TA9 PO
[2024-10-11 23:46] LABS: BASOPHILS # (AUTO) 0.04 K/uL (0.00-0.20); BASOPHILS % (AUTO) 0.5 % (0.0-5.0); EOSINOPHILS # (AUTO) 0.16 K/uL (0.00-0.70); EOSINOPHILS % (AUTO) 1.9 % (0.0-8.0); HEMATOCRIT 39.5 % (36-48); IMMATURE GRANULOCYTE ABSOLUTE 0.02 K/uL (0-1); LYMPHOCYTES # (AUTO) 3.1 K/uL (1.0-4.8); LYMPHOCYTES % (AUTO) 36.7 % (21.0-51.0); MEAN CORPUSCULAR HEMOGLOBIN 31.4 pg (27.0-33.0); MEAN CORPUSCULAR HGB CONC 33.4 g/dL (32.0-36.0); MONOCYTES # (AUTO) 0.9 K/uL (0.1-1.0); MONOCYTES % (AUTO) 10.2 % (3.0-13.0); NEUTROPHILS # (AUTO) 4.2 K/uL (1.8-7.7); NEUTROPHILS % (AUTO) 50.5 % (40.0-77.0); PLATELET COUNT (AUTO) 312 K/uL (130-400); RED CELL DISTRIBUTION WIDTH 12.2 % (11.0-15.5); WHITE BLOOD COUNT (AUTO) 8.3 K/uL (4.8-10.8)
[2024-10-11 23:57] LABS: CREATININE 0.4 mg/dL (0.5-1.0)
[2024-10-12 00:06] LABS: B-TYPE NATRIURETIC PEPTIDE 16 pg/mL (0-100)
[2024-10-12 00:09] LABS: HCG,QUALITATIVE URINE NEGATIVE (NEGATIVE)
[2024-10-12 00:11] LABS: APPEARANCE,URINE CLEAR (CLEAR); BILIRUBIN,URINE NEGATIVE (NEGATIVE); COLOR,URINE COLORLESS (YELLOW); GLUCOSE, URINE (UA) >=1000 mg/dL (NEGATIVE); KETONES,URINE NEGATIVE (NEGATIVE); LEUKOCYTE ESTERASE ,URINE NEGATIVE Leu/uL (NEGATIVE); NITRATE,URINE NEGATIVE (NEGATIVE); OCCULT BLOOD,URINE NEGATIVE (NEGATIVE); PROTEIN,URINE NEGATIVE (NEGATIVE); UROBILINOGEN,URINE 0.2 mg/dL (0.2-1.0)
[2024-10-12 00:12] LABS: ADD UA MICROSCOPIC YES
[2024-10-12 00:14] LABS: BACTERIA,URINE RARE /HPF (None Seen); RBC,URINE 0-1 /HPF (0-1); SQUAMOUS EPITHELIAL CELL,UR RARE /HPF (0-2); WBC,URINE 0-1 /HPF (0-1)
[2024-10-12] MEDS: 0.9% NACL 500ML IV.SOLN 500 ML IV ONE (00:58)
[2024-10-12] MEDS: INSULIN humuLIN R 100 UNIT/ML 3ML SQ ONE ×2 (01:00→03:05)
[2024-10-12] MEDS: morPHINE 2 MG SYG IVP ONE (01:07)
[2024-10-12 01:41] LABS: AMPHET/METH SCREEN,URINE NEGATIVE (NEGATIVE); BARBITURATE SCREEN, URINE NEGATIVE (NEGATIVE); BENZODIAZEPINES SCREEN,URINE NEGATIVE (NEGATIVE); CANNABINOID SCREEN,URINE POSITIVE (NEGATIVE); COCAINE SCREEN,URINE NEGATIVE (NEGATIVE); OPIATE SCREEN,URINE NEGATIVE (NEGATIVE); PHENCYCLIDINE SCREEN,URINE NEGATIVE (NEGATIVE)
--- NOTE | 2024-10-12 02:37 | ERN ---
ED Note History of Present Illness Stated Complaint: HIGH BLOOD SUGAR Chief Complaint: Hyperglycemia Time Seen by MD: 23:10 Dictation: This is a 29-year-old female who was brought by her to the emergency room complaining that her sugar is high and that she is extremely weak and she has chest pain that has been going on for about a month. She reported nausea and the left-sided chest pain is in the upper chest area and it is very tender and sore to touch. No cough sputum or hemoptysis no diaphoresis or syncopal episode. Temperature 99 pulse 80 respirations 16 blood pressure 112/71 with a pulse oximetry of 98% on room air Her chronic medical problems include diabetes mellitus, anxiety and depression Allergies: Coded Allergies: No Allergy Information Available (Verified Allergy, Unknown, 01/02/21) NKA No Known Drug Allergies (Unverified Allergy, Unknown, 04/21/23) Home Meds Active Scripts Glipizide (Glipizide) 10 Mg Tablet, 10 MG PO BID, #60 TAB Prov:MICHELLE MANZANARES MD 12/30/22 Albuterol Sulfate (Ventolin Hfa/Proventil Hfa/Proair Hfa) 90 Mcg/Puff Puff, 2 PUFF IH Q4HPRN PRN for WHEEZING, #1 INHALER 0 Refills Prov:FRANCIS RICHARDS MD 09/16/22 Benzonatate (Tessalon Perles) 100 Mg Cap, 100 MG PO TID PRN for COUGH, #30 CAP 0 Refills Prov:FRANCIS RICHARDS MD 09/16/22 Metformin HCl (Metformin HCl) 500 Mg Tablet, 500 MG PO BID, #60 TAB 0 Refills Prov:FRANCIS RICHARDS MD 09/16/22 Fluticasone Propionate (Flonase Nasal [place]) 50 Mcg/[place], 1 SPRAY NASAL BID for 15 Days, #1 SPRAY 0 Refills Prov:FRANCIS RICHARDS MD 09/16/22 Amoxicillin (Amoxicillin) 500 Mg Capsule, 500 MG PO TID for 10 Days, #30 CAP 0 Refills Prov:FRANCIS RICHARDS MD 09/16/22 Syringe-Needle,Insulin,0.5 ml (Easy Touch Insulin Syringe) 1 Each Disp.syrin, EACH MC BIDAC, #100 6 Refills Prov:DANO MCGRAW Jr., MD 10/20/21 Fenofibrate Nanocrystallized (Fenofibrate) 145 Mg Tablet, 145 MG PO DAILY for 90 Days, #90 TAB 2 Refills Prov:DANO MCGRAW Jr., MD 10/20/21 Hum Insulin NPH/Reg Insulin Hm (Humulin 70-30 Vial) 100 Unit/1 Ml Vial, 15 UNIT SQ ACDINNER for 30 Days, #30 DAYS 6 Refills Inject 15 units subcutaneous before dinner. Prov:DANO MCGRAW Jr., MD 10/20/21 Hum Insulin NPH/Reg Insulin Hm (Humulin 70-30 Vial) 100 Unit/1 Ml Vial, 20 UNIT SQ ACBKFST for 30 Days, #30 DAYS 6 Refills Inject 20 Units Subcutaneously before breakfast Prov:DANO MCGRAW Jr., MD 10/20/21 Gabapentin (Neurontin) 300 Mg Capsule, 300 MG PO TID for 30 Days, #90 CAP 3 Refills Prov:DANO MCGRAW Jr., MD 10/20/21 Atorvastatin Calcium (LIPITOR) 40 Mg Tablet, 40 MG PO HS for 90 Days, #90 TAB 2 Refills Prov:DANO MCGRAW Jr., MD 10/20/21 Fish Oil/Dha/Epa (Fish Oil 1,200 mg Fish Oil) 1 Each Capsule, 1 EACH PO DAILY for 30 Days, #30 CAP 0 Refills Prov:LIZETTE BLAKE MD 01/05/21 Reported Medications Cholecalciferol (Vitamin D3) (Vitamin D3) 50 Mcg Capsule, 50 MCG PO DAILY, CAP 01/05/21 Pantoprazole Sodium (Pantoprazole Sodium) 40 Mg Granpkt.dr, 40 MG PO DAILY, PACK 01/05/21 Ferrous Sulfate (Iron) 325 Mg Tablet, 325 MG PO DAILY, TAB 01/05/21 Past Medical History Past Medical History: Anxiety, Depression, Diabetes-Type II Additional Past Medical Hx: PCOS Surgical History: None Family History: Negative Social History: Drugs (Marijuana use) RN Note Reviewed/Agreed w/PFSH: Yes Review of System Dictation Constitutional: Negative for fever,chills, and weight loss Eyes: Negative for injury, pain,redness, and discharge ENT: Negative for injury,pain or swelling Cardiovascular: Positive for chest pain, denies palpitations, and edema Respiratory: Negative for shortness of breath, cough, and wheezing, Abdomen/GI: Negative for abdominal pain, nausea, vomiting, diarrhea, and constipation Back: Negative for injury and pain : Negative for injury, bleeding and discharge MS/Extremity: Negative for injury and deformity Skin: Negative for rash, and discoloration Neuro: Negative for headache, weakness, numbness, tingling, and seizure drowsy and weak Psych: Negative for suicide ideation, homicidal ideation, and hallucinations Initial Vital Sign VS Vital Signs Date Time Temp Pulse Resp B/P (MAP) Pulse Ox O2 Delivery O2 Flow Rate FiO2 10/11/24 23:08 99.0 80 16 112/71 98 Room Air 10/11/24 23:55 0 21 Physical Exam Dictation General: awake, alert, NAD appears drowsy but arousable and answers questions Head/Face: Normocephalic, atraumatic Eyes: PERRL, EOMI, vision at baseline ENT: oral cavity clear, TMs clear, no signs of infection Neck: Trachea midline, supple, no nuchal rigidity Cardiovascular: RRR, normal S1/S2, No MRGs, no JVD Respiratory: CTAB, no respiratory distress, No rales or wheezes Abdomen: Soft, non-tender, non-distended, normal bowel sounds, no guarding or rebound. Skin: Warm, dry, normal turgor, no rash MS/Extremity: Pulses equal, no cyanosis, neurovascular intact, FROM Neuro: COAx4, GCS 15, strength 5/5, CN 2-12 intact, normal cerebellar exam, normal gait, Psych: Normal behavior, mood, and affect normal Extremities-trace edema without any palpable cords, Homans sign is negative Results (Laboratory/Radiology) Laboratory/Radiology Laboratory Tests Test 10/11/24 23:36 10/11/24 23:45 10/11/24 23:54 10/12/24 03:02 White Blood Count 8.3 K/uL (4.8-10.8) Red Blood Count 4.20 MIL/uL (4.00-5.50) Hemoglobin 13.2 g/dL (12.0-16.0) Hematocrit 39.5 % (36-48) Mean Corpuscular Volume 94.0 fL (79-99) Mean Corpuscular Hemoglobin 31.4 pg (27.0-33.0) Mean Corpuscular Hemoglobin Concent 33.4 g/dL (32.0-36.0) Red Cell Distribution Width 12.2 % (11.0-15.5) Platelet Count 312 K/uL (130-400) Mean Platelet Volume 9.5 fL (7.5-10.5) Immature Granulocyte % (Auto) 0.2 % (0-1) Neutrophils (%) (Auto) 50.5 % (40.0-77.0) Lymphocytes (%) (Auto) 36.7 % (21.0-51.0) Monocytes (%) (Auto) 10.2 % (3.0-13.0) Eosinophils (%) (Auto) 1.9 % (0.0-8.0) Basophils (%) (Auto) 0.5 % (0.0-5.0) Neutrophils # (Auto) 4.2 K/uL (1.8-7.7) Lymphocytes # (Auto) 3.1 K/uL (1.0-4.8) Monocytes # (Auto) 0.9 K/uL (0.1-1.0) Eosinophils # (Auto) 0.16 K/uL (0.00-0.70) Basophils # (Auto) 0.04 K/uL (0.00-0.20) Absolute Immature Granulocyte (auto 0.02 K/uL (0-1) Nucleated Red Blood Cells 0.0 % (0.0-0.19) Sodium Level 138 mmol/L (136-145) Potassium Level 4.0 mmol/L (3.5-5.1) Chloride Level 104 mmol/L (101-111) Carbon Dioxide Level 25 mmol/L (21-32) Blood Urea Nitrogen 13 mg/dL (7-18) Creatinine 0.4 mg/dL (0.5-1.0) L Glomerular Filtration Rate Calc 136 mL/min (>90) Random Glucose 324 mg/dL (70-105) H Total Calcium 8.9 mg/dL (8.5-10.1) Total Creatine Kinase 30 U/L (21-232) Troponin I High Sensitivity 6 ng/L (4-50) B-Type Natriuretic Peptide 16 pg/mL (0-100) Whole Blood Glucose 321 MG/DL (70-110) H 180 MG/DL (70-110) H Urine Color COLORLESS (YELLOW) Urine Appearance CLEAR (CLEAR) Urine pH 7.0 (5.0-8.0) Urine Specific [place] 1.020 (1.001-1.031) Urine Protein NEGATIVE mg/dL (NEGATIVE) Urine Glucose (UA) >=1000 mg/dL (NEGATIVE) H Urine Ketones NEGATIVE mg/dL (NEGATIVE) Urine Occult Blood NEGATIVE (NEGATIVE) Urine Nitrate NEGATIVE (NEGATIVE) Urine Bilirubin NEGATIVE mg/dL (NEGATIVE) Urine Urobilinogen 0.2 mg/dL (0.2-1.0) Urine Leukocyte Esterase NEGATIVE Clarice/uL Urine RBC 0-1 /HPF (0-1) Urine WBC 0-1 /HPF (0-1) Urine Squamous Epithelial Cells RARE /HPF (0-2) Urine Bacteria RARE /HPF (None Seen) Urine HCG, Qualitative NEGATIVE (NEGATIVE) Urine Opiates Screen NEGATIVE (NEGATIVE) Urine Barbiturates Screen NEGATIVE (NEGATIVE) Urine Phencyclidine Screen NEGATIVE (NEGATIVE) Urine Amphetamines Screen NEGATIVE (NEGATIVE) Urine Benzodiazepines Screen NEGATIVE (NEGATIVE) Urine Cocaine Screen NEGATIVE (NEGATIVE) Urine Marijuana (THC) Screen POSITIVE (NEGATIVE) H Labs Reviewed?: Yes ED Course ED Course Orders Procedure Category Date Status Time Vital Signs Per CPOE 10/11/24 Transmitted Routine 23:09 B-Type Natriuretic LAB 10/11/24 Complete Peptide 23:09 Chest 1vw RAD 10/11/24 Taken 23:09 12 Lead Ekg Tracing- EKG 10/11/24 Logged Technical 23:09 Oxygen By Nc/Pulse Ox CPOE 10/11/24 Transmitted 23:09 Maintain Iv CPOE 10/11/24 Transmitted 23:09 Iv Insertion CPOE 10/11/24 Transmitted 23:09 Cardiac Monitoring CPOE 10/11/24 Transmitted 23:09 Pulse Oximetry With CPOE 10/11/24 Transmitted Vs And Prn 23:09 Cbc With Differential LAB 10/11/24 Complete 23:09 Activity: Br W/Brp CPOE 10/11/24 Transmitted With Assist 23:09 Creatine Kinase, Total LAB 10/11/24 Complete 23:09 Troponin I High LAB 10/11/24 Complete Sensitivity 23:09 Urinalysis Profile LAB 10/11/24 Complete 23:09 Basic Metabolic Panel LAB 10/11/24 Complete 23:09 Bedside Glucose CPOE 10/11/24 Transmitted Fingerstick 23:09 ,Urine Test LAB 10/11/24 Complete 23:09 ,Urine Test LAB 10/12/24 Complete 00:31 Morphine 2mg Syg PHA 10/12/24 Complete (Morphine 2mg Syg) 01:00 0.9% Nacl 500ml PHA 10/12/24 Complete Iv.Soln (Ns 500ml 01:00 Insulin Regular, PHA 10/12/24 Complete Human 3ml (Humulin R 01:00 Drug Screen Urine LAB 10/12/24 Complete 01:04 Insulin Regular, PHA 10/12/24 Complete Human 3ml (Humulin R 02:30 Current Medications Medications (Trade) Dose Ordered Sig/Micaela Route PRN Reason Start Time Stop Time Status Last Admin Dose Admin Insulin Human Regular (humuLIN R 100 UNIT/ML 3ML) 15 unit ONCE ONCE SQ 10/12/24 01:00 10/12/24 01:01 DC 10/12/24 01:00 Insulin Human Regular (humuLIN R 100 UNIT/ML 3ML) 15 unit ONCE ONCE SQ 10/12/24 02:30 10/12/24 02:31 DC Morphine Sulfate (morPHINE 2MG SYG) 2 mg ONCE ONCE IVP 10/12/24 01:00 10/12/24 01:01 DC 10/12/24 01:07 Sodium Chloride 500 ml @ 0 mls/hr ONCE ONCE IV 10/12/24 01:00 10/12/24 01:01 DC 10/12/24 00:58 Vital Signs Date Time Temp Pulse Resp B/P (MAP) Pulse Ox O2 Delivery O2 Flow Rate FiO2 10/12/24 02:01 93 14 90/53 98 Room Air* 0 21 10/11/24 23:55 98.8 84 16 102/59 100 Room Air* 0 21 10/11/24 23:08 99.0 80 16 112/71 98 Room Air We will perform diagnostic labs, advanced imaging and administer medications according to the patient's complaint. Once the results are available, will review and personally interpreted the labs to rule out any acute life- threatening emergency the trach require immediate intervention and treatment. I will then re-evaluate the patient after treatment and diagnostic exams have re turn to determine whether the patient requires any further testing, can safely be discharged home or need further admission to hospital for additional treatment and evaluation. Labs reviewed CBC BNP 7 with a normal limits troponins are negative brain natri uretic peptide is 16 blood sugar is 317. Urinalysis is unremarkable for any infection and UDS was positive for marijuana 2:30 a.m.-on multiple re-evaluations and waiting for labs to come back she is much more awake now and stated that she uses marijuana for leg pains and chest pain I explained to her the entire workup has been negative and it is very likely that she is intoxicated from marijuana and she giggled. She will be discharged to home and she called her to pick her up Medical Decision Making MDM MDM: Differential diagnosis: DKA, dehydration, underlying infection, recreational drugs Rationale: Tests considered and ordered secondary to shared decision making include: Previous outside records reviewed: Old ER visits. Risk of complication and/or morbidity or mortality of patient management: None Medications-Per medication reconciliation Need for hospitalization: Patient does not meet criteria for hospitalization. Need for emergency major/minor surgery: No There are no social concerns with this patient. Prescription drug management Prescriptions will include symptomatic care Patient's prior external medical records from other ER visits were reviewed by me as indicated. Prior testing and results from previous visits were reviewed. Prior tests were taken into account with medical decision making and resource utilization, independent historian/historians were used to obtain complete medical history. I independently interpreted the test that were performed, results were reviewed by me and considered findings on radiology if ordered. Medical management and examination interpretation discussions were had by me with other qualified healthcare professionals as indicated for the patient's care. DX & DISP Disposition: Discharge Departure Impression: Primary Impression: Cannabis intoxication Additional Impressions: Uncontrolled diabetes mellitus, Atypical chest pain Condition: Stable Additional Instructions: Patient and the caregiver have been informed of all the diagnostic tests and the imaging conducted during the today's visit to the emergency room and has verbalized understanding of the results I have personally reviewed and interpreted all diagnostic exams performed here in the ER today as well as the vital signs documented by the nursing staff. The patient is now being disch arged to home and should follow up with the primary care physician or the specialist as directed by the ER staff. Follow-up with primary care provider in 1 to 2 days. Take medications as directed here in the emergency room. Okay to continue home medications unless otherwise discussed during your visit in the emergency room today. Return to your nearest emergency room if symptoms worsen or if there is no improvement. Call 911 if you need immediate assistance. Take Tylenol or Motrin [id number] as needed and if no contraindications are present. Increase oral hydration. A wound culture or urine culture was ordered here in the emergency room department please follow-up with primary care provider and advise them to get repeat ports from our facility. If you had any Fredy wrap/splints that were applied here, please do not remove them until you see your primary care or specialty. Referrals: HILARY NOE MD (PCP) JUANCARLOS HALL MD October 12, 2024 02:37
--- NOTE | 2024-10-12 03:20 | NUR ---
TRIAGE EDIT TO REFLECT UDS RESULTS
[2024-10-12 03:29] VITALS: BP 98/56; PULSE 82; RESP 14; TEMP 98.6; O2SAT 98
--- NOTE | 2024-10-12 08:53 | HMCIMG ---
PORTABLE CHEST RADIOGRAPH INDICATION: CHEST PAIN COMPARISON: 05/12/2023 FINDINGS: Shallow inspiration. Heart size is normal. The pulmonary vascularity and jayce appear normal. No abnormal pulmonary parenchymal opacity or consolidation identified. No significant pleural effusion noted. No pneumothorax detected. IMPRESSION: No radiographic evidence for any acute cardiopulmonary process.
--- NOTE | 2024-10-13 17:32 | EKG ---
[facility] Test Date: 2024-10-11 Test Time: 23:08:52 Pat Name: STEFANY MODI Department: ED Room: Gender: F Geomagnetician: [id number] : 1995 Requested By: JUANCARLOS HALL Order Number: [id number] Reading MD: Britta Morales Measurements Intervals [place] Rate: 83 P: 32 HI: 141 QRS: 52 QRSD: 62 T: 33 QT: 373 QTc: 437 Interpretive Statements Sinus rhythm Low voltage, precordial leads Compared to ECG 12/30/2022 09:06:51 No significant changes Electronically Signed On 10-14-2024 14:20:26 CDT by Britta Morales Please click the below link to view image of tracing.
== END 2024-10-12 03:39 | disposition home or self-care (01) ==
LOC: EDH 23:06
DX: E11.65 Type 2 diabetes mellitus with hyperglycemia (principal); F12.929 Cannabis use, unspecified with intoxication, unspecified; R07.89 Other chest pain; Z79.84 Long term (current) use of oral hypoglycemic drugs; Z79.899 Other long term (current) drug therapy
CPT/HCPCS: 99284; 71045; 82550; 84484; 80048; 83880; 80305; 85025; 82948 ×3; 36415; 93005; 81001; 96374; 96361; 96372; 81025 ×2; J1815; J7040; J2270

== ENCOUNTER 2024-12-18 10:46 | Emergency (ER) | payer BC ==
[~2024-12-18] VITALS: Ht 149.9 cm; Wt 61.7 kg
--- NOTE | 2024-12-18 11:00 | ERN ---
General Chief Complaint: Animal Bite Stated Complaint: DOG BITE Time Seen by MD: 10:50 History of Present Illness Initial Comments 29-year-old female, diabetic, who presents for dog bite. Patient's dog got into a fight with another dog, washed them she got bit in the left lucero and on the right hand. No foreign bodies. She has a lacerations on the right finger and left lucero. No other injuries. She has otherwise been in her normal state of health. Allergies: Coded Allergies: No Allergy Information Available (Verified Allergy, Unknown, 01/02/21) NKA No Known Drug Allergies (Unverified Allergy, Unknown, 04/21/23) Home Meds Active Scripts Acetaminophen with Codeine (Acetaminophen-Cod #3 Tablet) 300 Mg-30 Mg Tablet, 1 TAB PO Q6HPRN PRN for pain for 5 Days, #20 TAB 0 Refills Prov:TY OROZCO DO 12/18/24 Amoxicillin/Potassium Clav (Amox Tr-K Clv 875-125 mg Tab) 875 Mg-125 Mg Tablet, 1 TAB PO BID for 10 Days, #20 TAB 0 Refills Prov:TY OROZCO DO 12/18/24 Glipizide (Glipizide) 10 Mg Tablet, 10 MG PO BID, #60 TAB Prov:MICHELLE MANZANARES MD 12/30/22 Albuterol Sulfate (Ventolin Hfa/Proventil Hfa/Proair Hfa) 90 Mcg/Puff Puff, 2 PUFF IH Q4HPRN PRN for WHEEZING, #1 INHALER 0 Refills Prov:FRANCIS RICHARDS MD 09/16/22 Benzonatate (Tessalon Perles) 100 Mg Cap, 100 MG PO TID PRN for COUGH, #30 CAP 0 Refills Prov:FRANCIS RICHARDS MD 09/16/22 Metformin HCl (Metformin HCl) 500 Mg Tablet, 500 MG PO BID, #60 TAB 0 Refills Prov:FRANCIS RICHARDS MD 09/16/22 Fluticasone Propionate (Flonase Nasal Hamberg) 50 Mcg/[place]orp [place], 1 SPRAY NASAL BID for 15 Days, #1 SPRAY 0 Refills Prov:FRANCIS RICHARDS MD 09/16/22 Amoxicillin (Amoxicillin) 500 Mg Capsule, 500 MG PO TID for 10 Days, #30 CAP 0 Refills Prov:FRANCIS RICHARDS MD 09/16/22 Syringe-Needle,Insulin,0.5 ml (Easy Touch Insulin Syringe) 1 Each Disp.syrin, EACH MC BIDAC, #100 6 Refills Prov:DANO MCGRAW Jr., MD 10/20/21 Fenofibrate Nanocrystallized (Fenofibrate) 145 Mg Tablet, 145 MG PO DAILY for 90 Days, #90 TAB 2 Refills Prov:DANO MCGRAW Jr., MD 10/20/21 Hum Insulin NPH/Reg Insulin Hm (Humulin 70-30 Vial) 100 Unit/1 Ml Vial, 15 UNIT SQ ACDINNER for 30 Days, #30 DAYS 6 Refills Inject 15 units subcutaneous before dinner. Prov:DANO MCGRAW Jr., MD 10/20/21 Hum Insulin NPH/Reg Insulin Hm (Humulin 70-30 Vial) 100 Unit/1 Ml Vial, 20 UNIT SQ ACBKFST for 30 Days, #30 DAYS 6 Refills Inject 20 Units Subcutaneously before breakfast Prov:DANO MCGRAW Jr., MD 10/20/21 Gabapentin (Neurontin) 300 Mg Capsule, 300 MG PO TID for 30 Days, #90 CAP 3 Refills Prov:DANO MCGRAW Jr., MD 10/20/21 Atorvastatin Calcium (LIPITOR) 40 Mg Tablet, 40 MG PO HS for 90 Days, #90 TAB 2 Refills Prov:DANO MCGRAW Jr., MD 10/20/21 Fish Oil/Dha/Epa (Fish Oil 1,200 mg Fish Oil) 1 Each Capsule, 1 EACH PO DAILY for 30 Days, #30 CAP 0 Refills Prov:LIZETTE BLAKE MD 01/05/21 Reported Medications Cholecalciferol (Vitamin D3) (Vitamin D3) 50 Mcg Capsule, 50 MCG PO DAILY, CAP 01/05/21 Pantoprazole Sodium (Pantoprazole Sodium) 40 Mg Granpkt.dr, 40 MG PO DAILY, PACK 01/05/21 Ferrous Sulfate (Iron) 325 Mg Tablet, 325 MG PO DAILY, TAB 01/05/21 Past Medical History Past Medical History: Diabetes-Type II Medical History Other: PCOS Past Surgical History: None Family History Family History: Negative Social History Social History: Drugs ROS Dictation CONSTITUTIONAL: No chills, no fever, no weakness, no diaphoresis, no malaise. HEAD/FACE: No signs of trauma. EENT: No eye pain, no blurred vision, no tearing, no double vision, no ear bisi n, no ear discharge, no nose pain, no nasal congestion, no throat pain, no throat swelling, no mouth pain. RESPIRATORY: No cough, no orthopnea, no SOB, no stridor, no wheezing. CARDIOVASCULAR: No chest pain, no edema, no palpitations, no syncope. GASTROINTESTINAL/ABDOMINAL: No abdominal pain, no constipation, no diarrhea, no nausea, no vomiting. GENITOURINARY: No abnormal discharge, no dysuria, no frequent urination, no hematuria. No complaints of pain in the genitals. MUSCULOSKELETAL: Right hand pain, left lucero pain INTEGUMENTARY: No change in color, no change in hair/nails, no dryness, no lesion, no lumps, no rash. NEUROLOGICAL/PSYCH: No anxiety, not depressed, no emotional problem, no headache, no numbness, no pre-existing deficit, no history of seizures, no tremors, no weakness. HEMATOLOGIC/LYMPHATIC: Not anemic, no history of blood clots, no apparent bleeding, no bruising, glands not swollen. All Systems Negative, Except as Noted. Physical Exam Physical Exam Dictation VITAL SIGNS: Reviewed. GENERAL APPEARANCE: Alert, oriented x3, no acute distress. HEAD AND FACE: Non-traumatic. EYES: PERRL, pink conjunctivas, eyelid no trauma, anterior chamber clear. EARS: Pinnas intact and no signs of trauma or erythema. Ear canals clear and no discharge. TMs no erythema. NOSE: No discharge, no bleeding. OROPHARYNX: Mouth normal, teeth no caries, tongue pink. Pharynx clear, no erythema. Tonsils no exudates, no abscesses noted. Mucous membrane moist. NECK: Supple, non-tender, no thyromegaly, no masses, no JVD, no bruits. BREAST: Deferred. CHEST: No tenderness, no crepitus, no paradoxical movement, no retractions. LUNGS: Clear, well-ventilated, symmetric, no rales, no wheezing, no rhonchi, no stridor, good breath sounds bilaterally. HEART: Regular rate, regular rhythm, no murmur, no gallops. VASCULAR: No peripheral edema. ABDOMEN: Soft, positive bowel sounds, nondistended, no guarding, nontender, no rebound, no masses no hepatomegaly, no splenomegaly, no Vaughn's sign, no hernias. RECTAL: Deferred. GENITAL: Deferred. NEUROLOGICAL: Normal speech, gross motor function intact, gross sensory function intact. MUSCULOSKELETAL: Neck nontender, full range of motion, back nontender, full range of motion. Right hand laceration left lucero laceration EXTREMITIES: Nontender, full range of motion. SKIN: Color pink, dry, no turgor, no rash, no lacerations, no abrasions, no contusions. LYMPHATICS: Deferred. MDM CC: Dog bite Historian: Patient has a sudden comorbidities: Diabetes Limitations by social determinants of health: None Differential diagnosis: Dog bite Vital signs are stable Clinically patient has a small laceration to the right finger, the x-ray is negative for any acute abnormalities. No indication for repair. Placed in a finger splint. Likely soft tissue injury. She also has a laceration of the l eft lucero. This is repaired with a single horizontal mattress suture. See the procedure note. No complications. Both wounds were cleaned thoroughly. Your tetanus was updated here in the ER. She was given IM Toradol and p.o. Surprise for pain. Plan will be to discharge with pain control, Augmentin PCP follow up. ED Course Orders Procedure Category Date Status Time Finger(S) 2+Vws Rt RAD 12/18/24 Resulted 10:56 Tetanus,Diphtheria PHA 12/18/24 Complete Tox [Adult] (Diphther 11:00 Ibuprofen 600 Mg PHA 12/18/24 Complete Tablet (Motrin) 11:00 Hydrocodone/Apap PHA 12/18/24 Complete 5/325 (Surprise 5/325mg) 11:00 *Nursing CPOE 12/18/24 Transmitted Communication: 10:56 Lidocaine 1%-Epi PHA 12/18/24 Complete 1:100,000 (Lidocaine 11:00 Tibia/Fibula 2vws Lt RAD 12/18/24 Resulted 12:11 Current Medications Medications (Trade) Dose Ordered Sig/Micaela Route PRN Reason Start Time Stop Time Status Last Admin Dose Admin Acetaminophen/ Hydrocodone Bitart (NORco 5/325MG) 1 tab ONCE ONCE PO 12/18/24 11:00 12/18/24 11:01 DC 12/18/24 12:01 Ibuprofen (moTRIN) 600 mg ONCE ONCE PO 12/18/24 11:00 12/18/24 11:01 DC 12/18/24 12:02 Lidocaine/ Epinephrine (Lidocaine 1%-Epi 1:100,000) 20 ml ONCE ONCE IJ 12/18/24 11:00 12/18/24 11:03 DC 12/18/24 12:05 Tetanus/ Diphtheria Toxoids Adsorbed (DiphthERIA-teTANUS TOXOID [ADULT]/ DECAVAC) 0.5 ml ONCE ONCE IM 12/18/24 11:00 12/18/24 11:01 DC 12/18/24 12:04 Vital Signs Date Time Temp Pulse Resp B/P (MAP) Pulse Ox O2 Delivery O2 Flow Rate FiO2 12/18/24 12:19 98.4 88 18 105/63 97 Room Air* 0 21 12/18/24 10:54 98.4 117 18 99/55 97 Room Air* 0 21 12/18/24 10:50 98.4 117 18 99/55 97 0 Laceration/Wound Repair Laceration/Wound Repair : Wound Location: lower extremity Wound's Depth, Shape: superficial Wound Explored: clean Betadine Prep?: Yes Anesthesia: Lidocaine w/ Epi Wound Debrided: minimal Wound Repaired With: sutures Suture Size/Type: 3:0 Number of Sutures: 1 Layer Closure?: No Sterile Dressing Applied?: No DX & DISP Disposition: Discharge Departure Impression: Primary Impression: Dog bite of left lower leg Additional Impression: Dog bite, hand Condition: Stable Scripts Acetaminophen with Codeine (Acetaminophen-Cod #3 Tablet) 300 Mg-30 Mg Tablet 1 TAB PO Q6HPRN PRN for pain for 5 Days, #20 TAB 0 Refills Prov: TY OROZCO DO 12/18/24 Amoxicillin/Potassium Clav (Amox Tr-K Clv 875-125 mg Tab) 875 Mg-125 Mg Tablet 1 TAB PO BID for 10 Days, #20 TAB 0 Refills Prov: TY OROZCO DO 12/18/24 Additional Instructions: Your left lower leg laceration was repaired with a single suture. This suture we will need to be removed in 10-14 days. The x-ray of your hand does not show any bony abnormalities or major injuries. Your symptoms are consistent with laceration and soft tissue injury. Be sure to keep all of your wounds clean with soap and water. As we discussed, dog's mouth are dirty and these type of injuries are prone to getting infected. Monitor for signs of infection and return to the emergency department if they develop. Your tetanus was updated here in the ER. I have prescribed amoxicillin/clavulanic acid. This is an antibiotic. Please take for 10 days as prescribed. I have prescribed Tylenol with codeine to use as needed for significant pain. I also recommend that you take an [id number] nonsteroidal anti-inflammatory pain medication such as naproxen or ibuprofen. Apply ice to your hand and lucero to reduce inflammation and swelling. I recommend 15-20 minutes up to 3 times a day for the next few days. Keep your wounds covered with a Band-Aid. Wear the finger splint for the next week or so as needed. Please return to the emergency department if you have any concerns. I recommend that you follow up with your primary doctor in a week or so if you continue with symptoms. Referrals: HILARY NOE MD (PCP) TY OROZCO DO Dec 18, 2024 11:00
[2024-12-18] MEDS: HYDROcodone/APAP 5/325 1 TAB TABLET PO ONE (12:01)
[2024-12-18] MEDS: LIDOCAINE 1%-EPI 1:100,000 20 ML VIAL IJ ONE (12:05)
[2024-12-18] MEDS ORDERED: ACET-2079 PO (12:18)
[2024-12-18] MEDS ORDERED: AMOX1TAB16 PO (12:18)
[2024-12-18 12:19] VITALS: BP 105/63; PULSE 88; RESP 18; TEMP 98.4; O2SAT 97
--- NOTE | 2024-12-18 12:20 | NUR ---
REPORT MADE NO CASE NUMBER AT THIS TIME
--- NOTE | 2024-12-18 13:36 | HMCIMG ---
EXAM: XR Left Tibia and Fibula, 2 Views. CLINICAL HISTORY: 29-year-old female, dog bite. COMPARISON: None provided. FINDINGS: BONES: No acute fracture or focal osseous lesion. No foreign body identified. JOINTS: No dislocation. The joint spaces are normal. SOFT TISSUES: There is some subcutaneous edema in the posterior calf soft tissues with associated soft tissue swelling. IMPRESSION: 1. No acute osseous abnormality. 2. Subcutaneous edema and soft tissue swelling in the posterior calf, likely related to the reported dog bite. No foreign body identified. /Pelican
--- NOTE | 2024-12-18 13:52 | HMCIMG ---
EXAM: CR right Finger, 3 View. CLINICAL HISTORY: injury, fb COMPARISON: None provided. FINDINGS: BONES: No acute fracture or aggressive appearing osseous lesion. JOINTS: No dislocation. The joint spaces are normal. SOFT TISSUES: The soft tissues are unremarkable. IMPRESSION: No acute osseous abnormality. No acute fracture or dislocation. /Marcus
== END 2024-12-18 12:32 | disposition home or self-care (01) ==
LOC: EDH 10:46
DX: S81.812A Laceration without foreign body, left lower leg, initial encounter (principal); S61.212A Laceration without foreign body of right middle finger without damage to nail, initial encounter; E11.9 Type 2 diabetes mellitus without complications; Z79.84 Long term (current) use of oral hypoglycemic drugs; Z79.899 Other long term (current) drug therapy; W54.0XXA Bitten by dog, initial encounter; Y93.89 Activity, other specified; Y92.89 Other specified places as the place of occurrence of the external cause; Y99.8 Other external cause status
CPT/HCPCS: 99284; 90714; 73140; 73590; 90471; 29130; 12001; J3490